=== PATIENT | male | born 2000 | race Caucasian/White ===

== ENCOUNTER 2019-11-30 21:43 | Emergency (ER) | payer OTHER, SELFPAY ==
[2019-11-30 22:12] VITALS: BP 153/89; PULSE 91; RESP 18; TEMP 36.3; O2SAT 100
--- NOTE | 2019-11-30 22:24 | ED.GENADULT ---
HPI - General Adult General Chief complaint: Wound/Laceration Stated complaint: left middle finger lac Time Seen by Provider: 11/30/19 22:19 Source: patient History of Present Illness HPI narrative: Patient is a 19 y/o male complaining of left middle finger laceration that occurred approximately 2 hours ago. He states that he was cutting union and accidentally cut his left middle finger. He has some bleeding from his wound. There is no other injury. Related Data Home Medications Medication Instructions Recorded Confirmed No Home Medications 11/30/19 11/30/19 Allergies Allergy/AdvReac Type Severity Reaction Status Date / Time No Known Allergies Allergy Verified 11/30/19 22:15 Review of Systems Constitutional: Constitutional: Reports as per HPI Integumentary/Breasts: Skin/Breast: Reports other (left middle finger laceration) [facility] Social History Social History Gender identity (if verbalized by the patient): Male Exam Const: General: no acute distress and well developed Orientation/consciousness: oriented to person, oriented to place, oriented to time and patient oriented x3 HENMT: Head: normocephalic Ears: external ears normal General nose exam: Normal external nose present Eyes: General: appearance normal, both eyes and all related structures Conjunctivae: conjunctivae normal Neck: Neck: normal visual inspection Chest: Chest palpation & inspection: normal inspection of the chest and no tenderness GI: Inspection: normal to inspection Skin: General skin exam: normal color and turgor normal Trauma: laceration (1.5 cm left middle finger) Extrem: General: normal to inspection, full ROM and no pedal edema Psych: Appearance: grossly normal Mental Status: mental status grossly normal Affect: normal affect Course Vital Signs Vital signs: Vital Signs Temperature 36.3 C L 11/30/19 22:12 Pulse Rate 91 11/30/19 22:12 Respiratory Rate 18 11/30/19 22:12 Blood Pressure 153/89 H 11/30/19 22:12 Pulse Oximetry 100 11/30/19 22:12 Temperature 36.5 C 11/30/19 23:25 Pulse Rate 81 11/30/19 23:25 Respiratory Rate 16 11/30/19 23:25 Blood Pressure 139/76 11/30/19 23:25 Pulse Oximetry 100 11/30/19 23:25 Procedures Laceration Laceration 1: Date: 11/30/19 Time: 23:05 Site: hand Side (If applicable): left (left middle finger) Size (cm): 1.5 Description: irregular Local Anesthetic: lidocaine 1% (digital block) Amount of anesthesia used (mL): 5 ====== Skin Level ====== Skin layer closed with: nylon Size (cm): 5-0 Number of sutures: 3 ====== Subcutaneous Layer ====== ====== Muscle Layer ====== ====== Tendon Layer ====== Medical Decision Making Vital Signs Vital Signs: Vital Signs Temperature 36.3 C L 11/30/19 22:12 Pulse Rate 91 11/30/19 22:12 Respiratory Rate 18 11/30/19 22:12 Blood Pressure 153/89 H 11/30/19 22:12 Pulse Oximetry 100 11/30/19 22:12 Temperature 36.5 C 11/30/19 23:25 Pulse Rate 81 11/30/19 23:25 Respiratory Rate 16 11/30/19 23:25 Blood Pressure 139/76 11/30/19 23:25 Pulse Oximetry 100 11/30/19 23:25 Discharge Plan Discharge Clinical Impression: Laceration of left middle finger Qualifiers: Encounter type: initial encounter Damage to nail status: without damage Foreign body presence: without foreign body Qualified Code(s): S61.213A - Laceration without foreign body of left middle finger without damage to nail, initial encounter Patient Disposition: Home, Self-Care Condition: Stable Instructions: Laceration (ED) Prescriptions: No Action No Home Medications RF: 0 Interventions: Discharge Disposition Last Done: 11/30/19 23:25 IV Stop Time Documented Last Done: 11/30/19 23:26 Follow-up/Referrals: Aníbal Alegre MD [Physician] - 2 We
[2019-11-30] MEDS: TETANUS,DIPHTHERIA,AC PERTUSSIS ADULT (0.5 ML) BOOSTRIX IM (22:43)
[2019-11-30 23:25] VITALS: BP 139/76; PULSE 81; RESP 16; TEMP 36.5; O2SAT 100
== END 2019-11-30 23:27 | disposition home or self-care (01) ==
PROVIDERS: Emergency Provider Emergency Medicine
DX: S61.213A Laceration without foreign body of left middle finger without damage to nail, initial encounter (principal); Z23 Encounter for immunization; W26.9XXA Contact with unspecified sharp object(s), initial encounter; Y93.G9 Activity, other involving cooking and grilling
CPT/HCPCS: 12001; 90471; 90715; 99282